=== PATIENT | female | born 1995 | race Two or more races ===

== ENCOUNTER 2017-05-29 17:47 | Emergency (ER) | payer MEDICAID, OTHER ==
[~2017-05-29] VITALS: Ht 157.5 cm; Wt 99.2 kg
[~2017-05-29 17:47] MED LIST: IBUP-1222 PO; OXYC-302 PO
[2017-05-29] MEDS ORDERED: SODIUM CHLORIDE 0.9% 1,000ML IVBOLUS ONE (18:30)
[2017-05-29] MEDS ORDERED: SODIUM CHLORIDE FLUSH 10ML SYR IVF ONE (18:30)
[2017-05-29] MEDS ORDERED: ONDANSETRON ODT 4 MG ONE (19:41)
[2017-05-29] MEDS ORDERED: HYDROmorphone 2 MG/ML, 1ML ONE (19:42)
[2017-05-29] MEDS ORDERED: HYDROmorphone 1 MG/ML, 1ML IM PRN (20:00)
[2017-05-29] MEDS ORDERED: ONDANSETRON ODT 4 MG PO ONE (20:00)
[2017-05-29 20:51] VITALS: BP 117/78
[2017-05-29] MEDS ORDERED: methylPREDNISolone SOD SUCC 125 MG/2 ML ONE (20:58)
[2017-05-29] MEDS ORDERED: methylPREDNISolone SOD SUCC 125 MG/2 ML IVPush ONE (21:00)
[2017-05-29] MEDS ORDERED: HYDROmorphone 1 MG/ML, 1ML IVPush PRN (21:00)
== END 2017-05-29 21:26 | disposition home or self-care (01) ==
LOC: ED 20:55
DX: M54.16 Radiculopathy, lumbar region (principal); M54.41 Lumbago with sciatica, right side; Z88.0 Allergy status to penicillin
CPT/HCPCS: 72110; 96361; 96374; 96375; 99285; J1170; J2930; J7030; Q0162